=== PATIENT | female | born 1965 | race Caucasian/White ===

== ENCOUNTER 2018-06-19 08:35 | Emergency (ER) | payer BC ==
[2018-06-19 08:42] VITALS: BP 138/83
[2018-06-19] MEDS ORDERED: METHYLPREDNISOLONE INJ 125 MG/2 ML SDV IM ONE (09:19)
--- NOTE | 2018-06-19 09:28 | ER Document Report ---
HPI - HPI Time Seen by Provider: 06/19/18 09:06 Pain Level: 2 Notes: Patient is a 53-year-old female with no significant past medical history who presents the emergency department complaining of a rash that began on her arms and has spread to her waist and upper thighs over the last 4 days. Patient states that she has been using Benadryl with no relief. Patient states that the rash is pruritic. 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 She has not had any new exposure to chemicals, detergents, soaps, foods, furniture, or plants. No recent illness otherwise. She is eating and drinking without difficulty. She is urinating normally and having normal bowel movements. No new medicines. Denies any headache, fever, neck pain, URI, sore throat, chest pain, palpitations, syncope, cough, shortness of breath, wheeze, dyspnea, abdominal pain, nausea/vomiting/diarrhea, urinary retention, dysuria, hematuria, joint pain. - ROS Systems Reviewed and Negative: Yes All other systems reviewed and negative - REPRODUCTIVE Reproductive: DENIES: : Past Medical History - Social History Smoking Status: Never Smoker Family History: Reviewed & Not Pertinent Vertical Provider Document - CONSTITUTIONAL Agree With Documented VS: Yes Notes: PHYSICAL EXAMINATION: GENERAL: Well-appearing, well-nourished and in no acute distress. HEAD: Atraumatic, normocephalic. EYES: Pupils equal round and reactive to light, extraocular movements intact, sclera anicteric, conjunctiva are normal. ENT: Nares patent and without discharge. oropharynx clear without exudates. No tonsilar hypertrophy or erythema. Moist mucous membranes. NECK: Normal range of motion, supple without lymphadenopathy LUNGS: Breath sounds clear to auscultation bilaterally and equal. No wheezes rales or rhonchi. HEART: Regular rate and rhythm without murmurs, rubs, gallops. ABDOMEN: Soft, nontender, nondistended abdomen. No guarding, no rebound. No masses appreciated. Normal bowel sounds present. No CVA tenderness bilaterally. Musculoskeletal: FROM to passive/active. Strength 5+/5. Extremities: No cyanosis, clubbing, or edema b/l. Peripheral pulses 2+. Capillary refill less than 3 seconds. NEUROLOGICAL: Cranial nerves grossly intact. Normal speech, normal gait. Normal sensory, motor exams PSYCH: Normal mood, normal affect. SKIN: Maculopapular excoriated rash to the bilateral arms/thighs and waist with possible burrowing. - INFECTION CONTROL TRAVEL OUTSIDE OF THE [place] IN LAST 30 DAYS: No Course - Re-evaluation Re-evalutation: 06/19/18 09:25 Patient is an afebrile, well-hydrated, 53-year-old female who presents to the emergency department with a rash that I suspect to be possible scabies versus dermatitis. Vitals are currently acceptable without significant tachycardia, tachypnea, or hypoxia. PE is otherwise unremarkable. Patient is nontoxic- appearing and is tolerating p.o. without difficulty. No other high risk factors present. After performing a Medical Screening Examination, I estimate there is LOW risk for any life threatening rash. At this time the patient looks extremely well and there are no signs of systemic infection, however this may change at any time and the rash may change. The patient and I have discussed the diagnosis and risks, and we agree with discharging home with close follow-up with the understanding that symptoms and presentations can change. We also discussed returning to the Emergency Department immediately if new or worsening symptoms occur. We have discussed the symptoms which are most concerning (e.g., changing or worsening pain, fever, numbness, weakness, cool or painful digits) that necessitate immediate return. I will send her home with a prescription for permethrin. Conservative measures for symptoms otherwise. Patient to recheck with PCM this week. Return to the emergency department any other worsening/concerning symptoms otherwise as reviewed. Patient is in agreement. - Vital Signs Vital signs: Temp Pulse Resp BP Pulse Ox 97.8 F 82 14 138/83 H 98 06/19/18 08:41 06/19/18 08:41 06/19/18 08:41 06/19/18 08:41 06/19/18 08:41 Discharge - Discharge Clinical Impression: Rash and nonspecific skin eruption Condition: Stable Disposition: HOME, SELF-CARE Instructions: Scabies ([facility]) Additional Instructions: Keep the skin clean Wash with soap and water Tylenol/ibuprofen if needed Wash clothes, etc as reviewed. Triple antibiotic ointment daily Take medication as directed Monitor for any worsening symptoms Recheck with your PCM in 2-3 days Consider consult with Dermatology for ongoing/worsening symptoms Return to the ED with any worsening symptoms and/or development of fever, headache, chest pain, palpitations, syncope, shortness of breath, trouble breathing, abdominal pain, n/v/d, abscess, purulent discharge, red streaks, worsening swelling, or other worsening symptoms that are concerning to you. Prescriptions: Permethrin [Elimite] 60 gm TP ONCE PRN #[id number] cream.gm. PRN Reason: Forms: Elevated Blood Pressure Referrals: GIFTY TOMLINSON DO [ACTIVE STAFF] - Follow up as needed
== END 2018-06-19 10:00 | disposition home or self-care (01) ==
LOC: ER 08:35
DX: R21 Rash and other nonspecific skin eruption (principal); L29.8 Other pruritus
CPT/HCPCS: 99282; 96372; J2930

== ENCOUNTER 2019-05-15 19:21 | Emergency (ER) | payer BC ==
--- NOTE | 2019-05-15 20:35 | ER Document Report ---
ED Medical Screen (RME) - General Chief Complaint: High Blood Pressure Stated Complaint: HIGH BLOOD PRESSURE Time Seen by Provider: 05/15/19 20:12 Primary Care Provider: CANDIE DUMONT MD [Primary Care Provider] - Follow up as needed Mode of Arrival: Ambulatory Information source: Patient TRAVEL OUTSIDE OF THE [place] IN LAST 30 DAYS: No - HPI Notes: 05/15/19 20:35 53-year-old female with a history of hypertension and migraines presents to the emergency room for complaints of palpitations and elevated blood pressure for the last 3 days or so. Patient does not typically take her blood pressure medication until 11 PM, she has not taken her daily dose yet. Patient reports she has had a worsening headache, did get a CT of her head done a couple of days ago and Mickey hernández which was ordered by her neurologist, he also did start her on Topamax. As far she knows that CT of her head was normal. Patient states that she does have a little bit more fluid retention in her lower extremities, she does have Lasix as needed as needed. Patient states that her palpitation is a new symptom. Denies any new foods or travel. New medication being Topamax which has changed her migraines little bit in the region of where she feels them. I have greeted and performed a rapid initial assessment of this patient. A comprehensive ED assessment and evaluation of the patient, analysis of test results and completion of the medical decision making process will be conducted by additional ED providers. PHYSICAL EXAMINATION: GENERAL: Well-appearing, well-nourished and in no acute distress. HEAD: Atraumatic, normocephalic. EYES: Pupils equal round extraocular movements intact, conjunctiva are normal. ENT: Nares patent NECK: Normal range of motion CV: s1,s2 regular LUNGS: No respiratory distress Musculoskeletal: Normal range of motion NEUROLOGICAL: Normal speech, normal gait. PSYCH: Normal mood, normal affect. - Related Data Allergies/Adverse Reactions: No Known Allergies Allergy (Unverified 06/19/18 08:37) Home Medications: topomax. lasix prn. hctz 25. metoprolol 25 bid. losartan. topomax 2 at bedtime Past Medical History - Social History Chew tobacco use (# tins/day): No - Past Medical History Cardiac Medical History: Reports: Hx Hypertension Renal/ Medical History: Denies: Hx Peritoneal Dialysis Past Surgical History: Reports: Hx Breast Surgery - right side mast, Hx Tubal Ligation Physical Exam - Vital signs Vitals: Temp Pulse Resp BP 97.9 F 69 18 181/92 H 05/15/19 19:47 05/15/19 19:47 05/15/19 19:47 05/15/19 19:47 Course - Vital Signs Vital signs: Temp Pulse Resp BP Pulse Ox 97.9 F 69 18 181/92 H 05/15/19 20:13 05/15/19 20:13 05/15/19 20:13 05/15/19 20:13 Doctor's Discharge - Discharge Referrals: CANDIE DUMONT MD [Primary Care Provider] - Follow up as needed
[2019-05-15 21:13] LABS: ABSOLUTE BASOPHILS # (AUTO) 0.1 10^3/uL (0.0-0.2); ABSOLUTE EOSINOPHILS # (AUTO) 0.3 10^3/uL (0.0-0.6); ABSOLUTE LYMPHOCYTES (AUTO) 2.1 10^3/uL (0.5-4.7); ABSOLUTE MONOCYTES (AUTO) 0.5 10^3/uL (0.1-1.4); ABSOLUTE NEUT (AUTO) 3.2 10^3/uL (1.7-8.2); BASOPHILS % (AUTO) 1.3 % (0-2); EOSINOPHILS % (AUTO) 5.2 % (0-6); HEMATOCRIT 40.5 % (36.0-47.0); HEMOGLOBIN 13.8 g/dL (12.0-15.5); LYMPHOCYTES % (AUTO) 33.8 % (13-45); MEAN CORPUSCULAR HEMOGLOBIN 31.5 pg (27.0-33.4); MEAN CORPUSCULAR VOLUME 93 fl (80-97); PLATELET COUNT 176 10^3/uL (150-450); RED BLOOD COUNT 4.38 10^6/uL (3.72-5.28); RED CELL DISTRIBUTION WIDTH 14.3 % (11.5-14.0); SEGMENTED NEUTROPHILS % (AUTO) 51.7 % (42-78); TOTAL CELLS COUNTED % (AUTO) 100 %; WHITE BLOOD COUNT 6.2 10^3/uL (4.0-10.5)
--- NOTE | 2019-05-15 21:13 | RADIOLOGY REPORT (SQ) ---
EXAM DESCRIPTION: XR CHEST 1 VIEW COMPLETED DATE/TME: 05/15/2019 20:18 CLINICAL HISTORY: 53 years, Female, Palpitations COMPARISON: EXAM DESCRIPTION: CLINICAL HISTORY: Palpitations COMPARISON: None. FINDINGS: Single view of the chest is submitted. Cardiac silhouette is normal. No focal parenchymal or pleural disease. No acute bony abnormality. There is no significant pulmonary vascular engorgement. IMPRESSION: No evidence of acute cardiopulmonary disease. NUMBER OF VIEWS: TECHNIQUE: LIMITATIONS: None. FINDINGS: IMPRESSION: copyright 2010 [facility]- All Rights Reserved
[2019-05-15 21:39] LABS: ALBUMIN 4.1 g/dL (3.5-5.0); ALKALINE PHOSPHATASE 59 U/L (38-126); ANION GAP 9 (5-19); ASPARTATE AMINO TRANSFERASE 38 U/L (14-36); BILIRUBIN,DIRECT 0.1 mg/dL (0.0-0.4); BILIRUBIN,TOTAL 0.4 mg/dL (0.2-1.3); BLOOD UREA NITROGEN 18 mg/dL (7-20); CALCIUM 9.7 mg/dL (8.4-10.2); CARBON DIOXIDE 23 mmol/L (22-30); CHLORIDE 109 mmol/L (98-107); CREATINE KINASE 101 U/L (30-135); GLUCOSE 89 mg/dL (75-110); POTASSIUM 3.4 mmol/L (3.6-5.0); TOTAL PROTEIN 7.3 g/dL (6.3-8.2)
[2019-05-15 21:51] LABS: NT PRO BNP 252 pg/mL (<125); TROPONIN I < 0.012 ng/mL
[2019-05-15] MEDS ORDERED: POTASSIUM CHLORIDE 10 MEQ TABLET.ER PO ONE (23:42)
--- NOTE | 2019-05-15 23:47 | ER Document Report ---
ED General - General Chief Complaint: High Blood Pressure Stated Complaint: HIGH BLOOD PRESSURE Time Seen by Provider: 05/15/19 20:12 Primary Care Provider: CANDIE DUMONT MD [Primary Care Provider] - Follow up in 3-5 days Mode of Arrival: Ambulatory Notes: Patient is a 53-year-old female that comes emergency department for chief complaint of intermittent palpitations that have been happening over the past month, and she is also noticed that her blood pressure has been more elevated over the past 3 days or so. She also states she had a headache earlier, however on my evaluation this is now resolved. She denies dizziness, chest pain, focal numbness or weakness, visual changes, vomiting, or difficulty urinating. Past medical history of hypertension, migraines, remote history of lesion from the breast removal and on tamoxifen, hypothyroidism on levothyroxine, and anxiety/depression on Effexor and Klonopin. She also smokes. She denies alcohol, recreational drugs. 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 Patient states she has a follow-up in 5 days with her primary care, she had blood work earlier today with her primary care that will be evaluated and she also had a CT of the head with her neurologist over the past several days that she believes was normal. TRAVEL OUTSIDE OF THE [place] IN LAST 30 DAYS: No - Related Data Allergies/Adverse Reactions: No Known Allergies Allergy (Unverified 06/19/18 08:37) Home Medications: topomax. lasix prn. hctz 25. metoprolol 25 bid. losartan. topomax 2 at bedtime Past Medical History - General Information source: Patient - Social History Smoking Status: Current Every Day Smoker Cigarette use (# per day): Yes - <3 min Chew tobacco use (# tins/day): No Frequency of alcohol use: None Drug Abuse: None Lives with: Family Family History: Reviewed & Not Pertinent Patient has suicidal ideation: No Patient has homicidal ideation: No - Past Medical History Cardiac Medical History: Reports: Hx Hypertension Renal/ Medical History: Denies: Hx Peritoneal Dialysis Past Surgical History: Reports: Hx Breast Surgery - right side mast, Hx Tubal Ligation - Immunizations Immunizations up to date: Yes Hx Diphtheria, Pertussis, Tetanus Vaccination: Yes Review of Systems - Review of Systems Constitutional: See HPI EENT: No symptoms reported Cardiovascular: See HPI Respiratory: No symptoms reported Gastrointestinal: No symptoms reported Genitourinary: No symptoms reported Female Genitourinary: No symptoms reported Musculoskeletal: No symptoms reported Skin: No symptoms reported Hematologic/Lymphatic: No symptoms reported Neurological/Psychological: See HPI Physical Exam - Vital signs Vitals: Temp Pulse Resp BP 97.9 F 69 18 181/92 H 05/15/19 19:47 05/15/19 19:47 05/15/19 19:47 05/15/19 19:47 - Notes Notes: GENERAL: Alert, interacts well. No acute distress. HEAD: Normocephalic, atraumatic. EYES: Pupils equal, round, and reactive to light. Extraocular movements intact. ENT: Oral mucosa moist, tongue midline. Oropharynx unremarkable. NECK: Full range of motion. Supple. Trachea midline. LUNGS: Clear to auscultation bilaterally, no wheezes, rales, or rhonchi. No respiratory distress. HEART: Regular rate and rhythm. No murmur ABDOMEN: Soft, non-tender. Non-distended. Bowel sounds present in all 4 quadrants. GENITOURINARY: Deferred EXTREMITIES: Moves all 4 extremities spontaneously. No edema, normal radial and dorsalis pedis pulses bilaterally. No cyanosis. BACK: no cervical, thoracic, lumbar midline tenderness. No saddle anesthesia, normal distal neurovascular exam. Moves all extremities in full range of motion. NEUROLOGICAL: Alert and oriented x3. Normal speech. Cranial nerves II through XII grossly intact. PSYCH: Normal affect, normal mood. SKIN: Warm, dry, normal turgor. No rashes or lesions noted. Course - Re-evaluation Re-evalutation: Patient has no headache on my evaluation. She has no neurological deficits. She recently had a CAT scan that she believes was negative. She is alert, talkative, well-appearing. Very low suspicion of any acute intracranial abnormality despite elevated blood pressure. She states she has been having intermittent palpitations, here she had normal heart rate and episodes of mild bradycardia without dizziness or other symptoms. Potassium slightly low and supplemented, magnesium unremarkable. CBC unremarkable, chemistry shows borderline renal functioning at 1.32 creatinine but no previous for comparison. I had a lengthy conversation with patient. She does shift work, constantly changing her schedule to nights, smokes, and has a stressful job. She also does not sleep well reportedly. She also needs intermittent caffeine. She has multiple reasons for palpitations. However she does not have chest pain, she does not have any concerning findings or symptoms at this time. I discussed all her work-up at length, discussed her follow-up, discussed return precautions. Patient states appreciation and agreement. Stable and asymptomatic at time of discharge. - Vital Signs Vital signs: Temp Pulse Resp BP Pulse Ox 97.3 F 53 L 16 173/100 H 100 05/16/19 00:38 05/16/19 00:38 05/16/19 00:38 05/16/19 00:38 05/16/19 00:38 - Laboratory Result Diagrams: 05/15/19 20:45 05/15/19 20:45 Laboratory results interpreted by me: 05/15/19 05/15/19 05/15/19 20:45 20:45 20:45 RDW 14.3 H Potassium 3.4 L Chloride 109 H Creatinine 1.32 H Est GFR ( Amer) 51 L Est GFR (MDRD) Non-Af 42 L AST 38 H NT-Pro-B Natriuret Pep 252 H - EKG Interpretation by Me Additional EKG results interpreted by me: EKG shows sinus bradycardia at a rate of 49, no T wave inversions or ST segment changes in consecutive leads, QTC of 470. Normal axis. Discharge - Discharge Clinical Impression: Palpitations, Elevated blood pressure reading Headache Qualifiers: Headache type: unspecified Headache chronicity pattern: acute headache Intractability: not intractable Qualified Code(s): R51 - Headache Condition: Stable Disposition: HOME, SELF-CARE Additional Instructions: Your general evaluation is reassuring. In regards to the palpitations you are potassium was slightly low and has been supplemented, continue your potassium at home, continue your metoprolol. Unfortunately you have a lot of factors that will increase palpitations incl uding shift work, nicotine, caffeine, stress, etc. Follow-up with your primary provider for possible adjustment of your metoprolol and additional management of this, consider lifestyle modifications as we discussed. I also recommend that you have your thyroid panel repeated with your primary care. In regards to your headache earlier, your exam is reassuring, follow-up with your CAT scan report. In regards to your blood pressure continue your current blood pressure regimen, have this closely rechecked with primary care, your kidney functioning also will need to be rechecked with creatinine today of 1.32. Come back if you worsen including severe headache, chest pain, passing out, difficulty breathing, vomiting, or any other concerning symptoms. Forms: Return to Work Referrals: CANDIE DUMONT MD [Primary Care Provider] - Follow up in 3-5 days
[2019-05-16 00:41] VITALS: BP 173/100
--- NOTE | 2019-05-16 13:01 | EKG REPORT ---
SEVERITY:- BORDERLINE ECG - SINUS BRADYCARDIA BORDERLINE T ABNORMALITIES, ANTERIOR LEADS : Confirmed by: Raeann Pearson MD 16-May-2019 13:00:47
== END 2019-05-16 00:38 | disposition home or self-care (01) ==
LOC: ER 19:21
DX: R00.2 Palpitations (principal); I10 Essential (primary) hypertension; R51 Headache; E03.9 Hypothyroidism, unspecified; F41.9 Anxiety disorder, unspecified; F32.9 Major depressive disorder, single episode, unspecified; Z79.899 Other long term (current) drug therapy; F17.210 Nicotine dependence, cigarettes, uncomplicated; R00.1 Bradycardia, unspecified
CPT/HCPCS: 36415; 71045; 80053; 82550; 82553; 83735; 83880; 84484; 85025; 93005; 93010; 99284

== ENCOUNTER → 2020-02-11 | Outpatient (CLI) | payer BC ==
[2020-02-11 11:12] VITALS: BP 140/69
--- NOTE | 2020-02-11 11:12 | ER RDC ASSESSMENT REPORT ---
Intake - In the Last 14 days Have you traveled outside [place]?: No Have you been in close contact with someone CONFIRMED: No Worked in Healthcare?: Yes --Where?: Patient is a safety coordinator at [employer] - Symptoms Subjective Fever([place] feverish): No Chills: No Muscule Aches: Yes Runny Nose: No Sore Throat: No Cough (New or worsening chronic cough): Yes Shortness of breath: No Nausea or Vomiting: Yes Headache: No Abdominal Pain: Yes Diarrhea(3 or more loose stools in last 24 hours): Yes - Do you have any of the following Chronic lung disease: Asthma or emphysema or COPD: No Cystic Fibrosis: No Diabetes: No High Blood Pressure: Yes Cardiovascular Disease: Yes Chronic Kidney Disease: No Chronic Liver Disease: No Chronic blood disorder like Sickle Cell Disease: No Weak immune system due to disease or medication: No Neurologic condition that limits movement: No Developmental delay - Moderate to Severe: No Recent (within past 2 weeks) or current : No Morbid Obesity (>100 pounds over ideal weight): No Obesity Comment: Height 5 feet 8 inches weight 169 pounds. Other Comment: Patient has a history of hypothyroidism - Objective Temperature: 99.3 F Pulse Rate: 62 Respiratory Rate: 18 Blood Pressure: 140/69 O2 Sat by Pulse Oximetry: 98 Objective: Given above, testing performed: If Testing Performed: Test Specimen Type Sent to General - General Information source: Patient Notes: [employer] cover testing patient reports having intermittent symptoms of diarrhea since August and the last 5 days has been daily patient also complains of muscle aches but thinks it may be from lying down feels exhausted after diarrhea. Patient followed up with PCP Dr. 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 - Related Data Allergies/Adverse Reactions: No Known Allergies Allergy (Unverified 06/19/18 08:37) Past Medical History - General Information source: Patient - Social History Smoking Status: Current Some Day Smoker - Smokes 6 cigarettes a day Family History: Reviewed & Not Pertinent - Past Medical History Cardiac Medical History: Reports: Hx Hypertension Renal/ Medical History: Denies: Hx Peritoneal Dialysis Past Surgical History: Reports: Hx Breast Surgery - right side mast, Hx Tubal Ligation Physical Exam - General General appearance: Appears well, Alert In distress: None Notes: PHYSICAL EXAMINATION: GENERAL: Well-appearing and in no acute distress. HEAD: Atraumatic, normocephalic. EYES: sclera anicteric, conjunctiva are normal. ENT: nares patent. Moist mucous membranes. NECK: Normal range of motion, supple without lymphadenopathy LUNGS: CTAB and equal. No wheezes rales or rhonchi. Respirations even and unlabored lung sounds clear. HEART: Regular rate and rhythm without murmurs ABDOMEN: Soft, nontender, normal bowel sounds, no guarding. EXTREMITIES: Normal range of motion, no pitting edema. No cyanosis. NEUROLOGICAL: Normal speech. PSYCH: Normal mood, normal affect. SKIN: Warm, Dry, normal turgor, Diagnostic Results Laboratory Results: Patient informed of negative rapid strep and negative rapid flu results. Pending strep culture. Pending COVID testing results. Patient provided instructions regarding code to include: As a person under investigation for Covid 19, the [facility], division of public health advises you to adhere to the following guidance until your test results are reported to you. If your test result is positive, you will receive additional information from your provider and your local health department at that time. Remain at home until you are cleared by the health provider or public health authorities. Keep a log of visitors to your home, notify any visitors to your home of your isolation status. If you plan to move to a new address or leave the [facility], notify the local health department in your County. Call your doctor or seek care if you have an urgent medical need. Before seeking medical care, call ahead to get instructions from the provider before a rriving at the medical office clinic or hospital. Notify them that you are being tested for the virus that causes Covid 19 so that arrangements can be made, as necessary, to prevent transmission to others in the healthcare setting. Next, notify the local health department in your county. If a medical emergency arises and you need to call 911, inform the first responders that you are being tested for the virus that causes Covid 19. Next, notify the local health department in your county. Patient Education/Counseling Counseling/Education: Patient presents with upper respiratory symptoms worrisome for possible Covid 19. Patient does not have emergency worring symptoms such as difficulty breathing, shortness of breath, chest pain, pressure, confusion or cyanosis. Patient appears suitable for discharge. Patient instructed to follow-up with PCP Dr. Halley Hubbard. To ED for persistent or worsening symptoms. Patient's vital signs are stable and patient is nontoxic in appearance. Good return precautions have been discussed with patient, patient verbalized understanding and is agreeable with discharge plan of care at this time. RDC Discharge - Discharge Condition: Stable Disposition: Home; Selfcare
[2020-02-11 12:17] LABS: A TYPE INFLUENZA AG NEGATIVE (NEGATIVE); B INFLUENZA AG NEGATIVE (NEGATIVE)
== END ==
LOC: RDC 10:30
PROVIDERS: ATTEND Nurse Practitioner Family
DX: Z20.828 Contact with and (suspected) exposure to other viral communicable diseases (principal); R05 Cough; M79.10 Myalgia, unspecified site; R11.0 Nausea; R10.9 Unspecified abdominal pain; R19.7 Diarrhea, unspecified; I10 Essential (primary) hypertension; E03.9 Hypothyroidism, unspecified; F17.210 Nicotine dependence, cigarettes, uncomplicated
CPT/HCPCS: 87070; 87880; 87804; U0003; C9803; 87635; 99201; 99211

== ENCOUNTER → 2020-05-31 | Outpatient (CLI) | payer SELFPAY ==
[~2020-05-31] MED LIST: COVID-19 VACCINE (PFIZER)/PF 30 MCG/0.3 ML VIAL IM ONE; EPINEPHRINE INJ/PF 1 MG/1 ML AMPULE IM PRN
== END ==
LOC: EMPHEALTH 06:32
PROVIDERS: ATTEND Internal Medicine
DX: Z23 Encounter for immunization (principal)
CPT/HCPCS: 91300

== ENCOUNTER → 2020-06-21 | Outpatient (CLI) | payer SELFPAY | LOC: EMPHEALTH 06:18 | PROVIDERS: ATTEND Internal Medicine | DX: Z23 Encounter for immunization (principal) | CPT/HCPCS: 91300 ==